=== PATIENT | female | born 1995 | race African-American/Black ===

== ENCOUNTER 2019-02-19 15:02 | Emergency (ER) | payer SELFPAY ==
[2019-02-19 15:03] VITALS: BP 121/82; PULSE 91; RESP 16; TEMP 36.1; O2SAT 97; BMI 37.9
--- NOTE | 2019-02-19 15:06 | RAD_ITS ---
STUDY: X-RAY - RIGHT FOOT CLINICAL: Female, 23 years old. Dorsal foot pain. No known injury. TECHNIQUE: 3 view(s) of the foot. COMPARISON: None. FINDINGS: Normal talus, calcaneus, and tarsal bones. Normal visualized subtalar, talonavicular, calcaneocuboid, tarsal and tarsometatarsal articulations. Normal metatarsi. Normal metatarsophalangeal joint of the great toe. Normal tibial and fibular sesamoid bones. Normal interphalangeal joint of the great toe. Normal phalanges of the great toe. Normal second through fifth metatarsophalangeal joints. Normal interphalangeal joints and phalanges of the lesser toes. The soft tissue structures are unremarkable. RAD/Foot min 3 Views IMPRESSION: Normal x-ray examination of the foot. Electronically Signed: Boyd Mederos, at 15:33 EDT , Service support ,
--- NOTE | 2019-02-19 15:29 | ED.VIS.GEN ---
History of Present Illness Chief Complaint: Lower Extremity Injury Detail of Chief Complaint: Right foot pain Informant: Patient Onset: Days Context: Gradual Onset Timing: Waxes and wanes Current Severity: Mild Maximum Severity: Moderate Narrative: She presents with right foot pain for the past couple of days. She initially denies any injury, but then her friend reminded her that she kicked a box a few days ago. She states pain is not too bad when sitting at rest, but has increased pain with weightbearing. She denies paresthesias. She took Tylenol yesterday for pain. Past Medical History - Allergies and Home Meds Allergies/Adverse Reactions: Allergies No Known Allergies Allergy (Verified 02/19/19 15:06) Prior records reviewed: Yes Past Medical History: - - Reviewed Smoking Status: Never smoker Review of Systems General: Denies: Chills, Fever Eyes: Denies: Visual changes - bilaterally ENT: Denies: Bilateral ear pain Cardiovascular: Denies: Chest pain Respiratory: Denies: Dyspnea Gastrointestinal: Denies: Abdominal pain Musculoskeletal: Reports: Extremity Pain Skin: Denies: Wounds Neurological: Denies: Weakness, Parasthesia, Numbness Hematologic: Denies: Easy bruising Allergy: Denies: Uticaria Physical Exam Vital Signs/Narrative: Vital Signs Temp Pulse Resp BP Pulse Ox 02/19/19 15:03 97 F L 91 16 121/82 H 97 Inital Vital Signs reviewed: Yes General: Well nourished, Well developed Head: Normocephalic ENT: Moist mucous membranes Cardiovascular: Regular rate, Regular rhythm Respiratory: No distress, CTA bilaterally Abdomen: Soft Extremities: - - Mild tenderness palpation over the distal fourth and fifth metatarsals. No edema or erythema. No ecchymosis. No tenderness at the ankle or knee. Skin: Normal color Neurological: Alert, Oriented x3, Normal Strength, Normal Sensation Psychological: Normal affect Diagnostic/Tx/Re-eval Right foot x-rays were obtained per nursing protocol and are unremarkable per my review. - Medical Decision Making X-ray results discussed with patient. Jacques wrap is applied to her foot. She was written for anti-inflammatories. ED Disposition - Plan for ED Patient: Disposition: Home or Assisted Living Diagnosis: Foot contusion Instructions: CONTUSION, Foot Prescriptions: Naproxen [Naprosyn] 500 mg PO BID PRN PRN #20 tablet PRN Reason: Pain Referrals: Les Espinoza MD [NON-STAFF] - As Needed
== END 2019-02-19 15:53 | disposition home or self-care (01) ==
LOC: ED 15:46
PROVIDERS: Emergency Provider Emergency Medicine
DX: S90.31XA Contusion of right foot, initial encounter (principal); X58.XXXA Exposure to other specified factors, initial encounter; Y93.89 Activity, other specified; Y92.9 Unspecified place or not applicable; Y99.9 Unspecified external cause status
CPT/HCPCS: 73630; 99282

== ENCOUNTER 2021-01-24 12:32 | Emergency (ER) | payer MEDICAID, SELFPAY ==
[2021-01-24 12:33] VITALS: BP 142/75; PULSE 99; RESP 14; TEMP 36.6; O2SAT 99; BMI 41.3
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
[2021-01-24] MEDS: Diphth,Pertuss(Acell),Tet Vac 0.5 ML Vial IM (13:34)
== END 2021-01-24 13:45 | disposition home or self-care (01) ==
PROVIDERS: Emergency Provider Emergency Medicine
DX: S50.812A Abrasion of left forearm, initial encounter (principal); V49.88XA Car occupant (driver) (passenger) injured in other specified transport accidents, initial encounter; Y93.89 Activity, other specified; Y92.410 Unspecified street and highway as the place of occurrence of the external cause; Y99.8 Other external cause status
CPT/HCPCS: 90471; 90715; 99284

== ENCOUNTER 2021-08-24 12:32 | Outpatient (CLI) | payer MEDICAID, SELFPAY ==
--- NOTE | 2021-08-24 12:36 | US_ITS ---
STUDY: ULTRASOUND BREAST - RIGHT REASON FOR EXAM: Female, 25 years old. Pain in the right breast. TECHNIQUE: Axial and longitudinal images of the RIGHT breast were performed with a high resolution ultrasound transducer. # OF IMAGES: 48 COMPARISON: None. FINDINGS: RIGHT Breast: The upper half of the right breast was examined by ultrasound. No sonographic abnormality is seen. US/Breast Limited Unilateral IMPRESSION: No sonographic abnormality is seen. ASSESSMENT CATEGORY: BIRADS Category 1: Negative. A letter regarding these results will be sent to the patient by the facility within 30 days. Electronically Signed: Boyd Mederos MD at 13:07 EDT ,
== END 2021-08-24 23:59 | disposition home or self-care (01) ==
LOC: OPUS 12:32
PROVIDERS: Visit Provider Nurse Practitioner Adult Health
DX: N64.4 Mastodynia (principal)
CPT/HCPCS: 76642

== ENCOUNTER 2022-06-17 05:20 | Emergency (ER) | payer MEDICAID, SELFPAY ==
[2022-06-17 05:21] VITALS: BP 141/87; PULSE 89; RESP 18; TEMP 36.3; O2SAT 100; BMI 42.7
[2022-06-17] MEDS: Ondansetron 4 MG/2 ML Vial IV (06:02)
[2022-06-17] MEDS: 0.9% Normal Saline 1,000 ML 999 ML IV (06:02)
[2022-06-17 06:14] LABS: Absolute Lymphocyte Count 1.28 X10^3/uL (0.83-4.51); Absolute Neutrophil Count 4.3 X10^3/uL (2.0-7.7); Basophil# 0.02 X10^3/uL; Basophil% 0.3 % (0-1); Eosinophil# 0.03 X10^3/uL; Eosinophils% 0.5 % (0-5); Hematocrit 41.1 % (37-47); Hemoglobin 13.5 g/dL (12.0-15.0); Lymphocyte # 1.28 X10^3/ul (0.83-4.51); Lymphocyte % 21.7 % (19-41); Mean Corp Hgb Conc 32.8 g/dL (32-36); Mean Corpuscular Hgb 28.5 pg (27.0-32.0); Mean Corpuscular Volume 86.7 fL (81-99); Mean Platelet Vol. 10.8 fl (6.2-12.0); Monocyte# 0.32 X10^3/uL; Monocyte% 5.4 % (0-10); NRBC Flagged by Analyzer 0 % (0-5); Neutrophil # 4.25 X10^3/uL (2.7-7.7); Neutrophil % 71.9 % (47-70); Platelet Count 324 K/mm3 (150-450); RBC Distribution Width CV 12.7 % (11.6-14.6); RBC Distribution Width SD 40.2 fl (35.1-43.9); Red Blood Count 4.74 M/mm3 (4.2-5.4); White Blood Count 5.9 K/mm3 (4.4-11.0)
[2022-06-17 06:29] LABS: Anion Gap 8 (5-15); BUN 9 mg/dL (7-18); BUN/Creat Ratio 12.2 RATIO (10-20); Calcium,Total 8.9 mg/dL (8.5-10.1); Chloride 107 mmol/L (98-107); Creatinine, Serum 0.74 mg/dL (0.55-1.02); EST Glomerular Filtration Rate 102 mL/min (>60); Est Glom Filt Rate - Afr Amer 123 mL/min (>60); Estimated Creatinine Clearance 101.23 ml/min; Glucose 104 mg/dL (74-106); Magnesium 1.9 mg/dL (1.6-2.6); Potassium 3.8 mmol/L (3.5-5.1); Sodium Level 140 mmol/L (136-145)
[2022-06-17 06:30] LABS: Internal QC Validated? YES +Cl - CLEAR BKGD
[2022-06-17 06:35] LABS: Pregnancy, Serum, hCG Quali. NEGATIVE Negative
--- NOTE | 2022-06-17 06:35 | EX.ED.DYSGE1 ---
HPI History of Present Illness Chief Complaint: Cold Sx Narrative Narrative: Patient is a 26-year-old female with no significant past medical history. She reports for approximately 5 days she has been having intermittent bouts of dry heaves and loose stool/diarrhea. She denies any recent antibiotic use known sick contacts or travel outside the country or livestock. She states that despite giving herself days for improvement that her symptoms have persisted and secondary to this she comes in for evaluation as she has concern for dehydration PFSH PFSH Medical History no medical history no medical history Home Medications amoxicillin 875 mg tablet 875 mg PO BID 06/17/22 [History Last Taken Unknown] metronidazole 500 mg tablet 500 mg PO BID 06/17/22 [History Last Taken Unknown] ondansetron 4 mg disintegrating tablet 4 mg PO TID PRN nausea and vomiting #21 tabs 06/17/22 [Rx Last Taken Unknown] Allergy/AdvReac Type Severity Reaction Status Date / Time No Known Allergies Allergy Verified 06/17/22 05:25 Social History (System 03/23/21 @ 13:44 by Lonnie Nicholas) Smoking Status: Never smoker ROS ROS ED Constitutional Constitutional ED: Denies chills or fever(s) ENT ENT ED: Denies sore throat Cardiovascular Cardiovascular: Denies chest pain Respiratory/Chest Respiratory/Chest: Reports cough; Denies dyspnea Gastrointestinal Gastrointestinal: Reports abdominal pain, diarrhea, nausea and vomiting Genitourinary Genitourinary ED: Denies dysuria Musculoskeletal Musculoskeletal: Reports myalgias Integumentary Denies rash Neurologic Neurologic: Denies headache(s) Hematologic/Lymphatic Hematologic/Lymphatic: Denies easy bleeding or easy bruising EXAM Physical Exam Const Vital Signs: 06/17/22 05:21 06/17/22 05:21 Temperature 97.4 F L Temperature Source Temporal Pulse Rate 89 Respiratory Rate 18 Respiratory Effort Normal Respiratory Pattern Normal Blood Pressure 141/87 H Blood Pressure Mean 105 Pulse Ox 100 Oxygen Delivery Method Room Air Positive well nourished and well developed General Appearance ED: well developed HEENT Reports dry mucous membranes HEENT Narrative: Mucous membranes are dry and tacky without secondary changes to suggest infection in the posterior pharynx Mouth ED: Yes dry mucous membranes Mouth: dry mucous membranes Eyes PERRL and EOMs intact bilaterally General Eye ED: Negative for scleral icterus Neck supple Resp normal respiratory effort and clear to auscultation bilaterally Cardio regular rate and regular rhythm GI non-tender and non-distended GI Narrative: Abdomen is soft nontender nondistended with hyperactive bowel sounds no voluntary guarding or rigidity Auscultation: hyperactive bowel sounds Palpation: soft Extremity normal to inspection Neuro oriented x3 and CN's II-XII intact bilaterally Sensorium / Orientation: alert Psych mental status grossly normal Skin no rashes or lesions noted and skin turgor normal General Skin Exam: Negative for jaundice MDM MDM MDM Narrative Medical decision making narrative: Patient presented to the ER with stable vitals and a soft nonsurgical abdomen so I felt no need for emergent imaging studies. With her report of 5 days of loose stool/diarrhea with poor oral intake there is concern for electrolyte abnormalities and dehydration. Basic blood work was obtained which revealed no clinically significant findings. Patient was given 1 L of IV fluid and Zofran had no bouts of loose stool/diarrhea or vomiting while in the ER. Therefore this time her symptoms fit more of a viral stomach infection and as her exam and work-up does not reveal severe electrolyte derangement or acute kidney injury she can be given symptomatic medication and discharged home. Lab Data Attestation: I reviewed the patient's lab results. Labs: Laboratory Results - last 24 hr 06/17/22 06/17/22 06/17/22 06:05 06:05 06:05 WBC 5.9 RBC 4.74 Hgb 13.5 Hct 41.1 MCV 86.7 MCH 28.5 MCHC 32.8 RDW Std Deviation 40.2 RDW Coeff of Naomi 12.7 Plt Count 324 MPV 10.8 Immature Gran % (Auto) 0.200 Neut % (Auto) 71.9 H Lymph % (Auto) 21.7 [place] % (Auto) 5.4 Eos % (Auto) 0.5 Baso % (Auto) 0.3 Absolute Neuts (auto) 4.3 Absolute Lymphs (auto) 1.28 Nucleated RBC % 0 Sodium 140 Potassium 3.8 Chloride 107 Carbon Dioxide 25.0 Anion Gap 8 BUN 9 Creatinine 0.74 Estim Creat Clear Calc 101.23 Est GFR (MDRD) Af Amer 123 Est GFR (MDRD) Non-Af 102 BUN/Creatinine Ratio 12.2 Glucose 104 Calcium 8.9 Magnesium 1.9 Serum , Qual NEGATIVE Discharge Plan Triage Chief Complaint: Cold Sx ED Provider: Mateo Huffman Dx/Rx/DC Orders Clinical Impression: Diarrhea, Nausea, Mild dehydration Instructions: ED Dehydration (Adult), ED Gastroenteritis, Viral (Adult) Prescriptions: New ondansetron 4 mg tablet,disintegrating 4 mg PO TID PRN (Reason: nausea and vomiting) Qty: 21 0RF No Action metronidazole 500 mg tablet 500 mg PO BID amoxicillin 875 mg tablet 875 mg PO BID Stand Alone Forms: ED Work / School Excuse Primary Care Provider: Care Physician,No Primary Referrals: Agustín Villarreal MD [Med Staff - Technical Proposal Writer] - Care Physician,No Primary [Primary Care Provider] - Activity Restrictions/Additional Instructions: Please keep yourself well-hydrated and use the Zofran to control any further bouts of dry heaves/nausea. If you have any further concerns please return to the ER for repeat evaluation Disposition Disposition: Home, Self Care
== END 2022-06-17 07:40 | disposition home or self-care (01) ==
PROVIDERS: Emergency Provider Emergency Medicine; Visit Provider Emergency Medicine
DX: R19.7 Diarrhea, unspecified (principal); R11.10 Vomiting, unspecified; E86.0 Dehydration
CPT/HCPCS: 80048; 83735; 84703; 85025; 87428; 96361; 96374; 99283; J7030; A4216; J2405

== ENCOUNTER 2024-03-08 02:27 | Emergency (ER) | payer MEDICAID, SELFPAY ==
[2024-03-08 02:28] VITALS: BP 136/73; PULSE 98; RESP 16; TEMP 37.1; O2SAT 97; BMI 43.4
--- NOTE | 2024-03-08 03:03 | EX.ED.GENINJ ---
HPI History of Present Illness Chief Complaint: Nausea/Vomiting Narrative Narrative: Chief complaint and HPI: Nausea and vomiting. 28-year-old female with no significant past medical presents for evaluation of nausea and vomiting. Patient states that she was at her normal state of health until this evening when she had 2 episodes of nausea and vomiting. She denies any fever, chills, URI symptoms, shortness of breath, chest pain, abdominal pain, dysuria, constipation, diarrhea. Denies any vaginal complaints. Denies as she states she is not sexually active. Review of systems: See HPI Medications: As listed on the chart Allergies: As listed on the chart PFSH: Per chart Vital signs: As listed on the chart. Reviewed. Physical exam: Gen: A&O x3, NAD Head: Normocephalic, atraumatic Eyes: No sclera icterus, conjunctiva clear ENT: Moist mucous membranes Neck: Trachea midline, No JVD CV: RRR, no murmurs, no peripheral edema Resp: Lungs CTA BL, no w/r/c GI: Abd soft, non-distended, non-tender, no r/r/g : No CVA tenderness Musc: Full ROM, no deformity Skin: Warm, dry Neuro: Alert, oriented, grossly intact, sensation intact Psych: Cooperative, appropriate mood and affect PFS PFS Home Medications ?Medication ?Instructions ?Recorded ?Last Taken ?Type ondansetron 4 mg disintegrating 4 mg PO TID PRN nausea and 06/17/22 Unknown Rx tablet vomiting #21 tabs ondansetron 4 mg disintegrating 4 mg PO Q8H PRN PRN Nausea #10 tabs 03/08/24 Unknown Rx tablet Allergy/AdvReac Type Severity Reaction Status Date / Time No Known Allergies Allergy Verified 03/08/24 02:28 Social History (System 03/23/21 @ 13:44 by Lonnie Nicholas) Smoking Status: Never smoker EXAM Physical Exam Const Vital Signs: 03/08/24 02:28 03/08/24 04:16 Temperature 98.7 F 99.1 F Temperature Source Oral Pulse Rate 98 74 Respiratory Rate 16 18 Blood Pressure 136/73 H 97/65 Blood Pressure Mean 94 75 Pulse Ox 97 100 Oxygen Delivery Method Room Air MDM MDM MDM Narrative Medical decision making narrative: 28-year-old female presents for evaluation of nausea and vomiting. Patient has had only 2 episodes of nausea and vomiting. She denies all other symptoms. She is nontender on physical exam. No clinical signs of dehydration. Zofran ordered for symptoms. Differential diagnosis includes but is not limited to viral syndrome, COVID, influenza, UA, . COVID, flu, RSV panel ordered including UA and urine . Urine negative. UA negative for UTI. No ketones suspect dehydration. On reexamination, patient states her nausea is improved. She is able to tolerate water and crackers without any vomiting or abdominal pain. Patient is stable to discharge home. She was told to follow-up with her PCP. She confirmed understanding of the plan. COVID, flu, RSV was not originally back when I was discharging the patient however before she left the emergency department her COVID, flu, RSV resulted and negative. Impression: 1. Nausea and vomiting 2. Viral syndrome Lab Data Labs: Laboratory Results - last 24 hr 03/08/24 03:21 Urine Color Yellow Urine Clarity Sl. Cloudy Urine pH 7.0 Ur Specific [place] 1.010 Urine Protein Negative Urine Glucose (UA) Normal Urine Ketones Negative Urine Occult Blood Negative Urine Nitrite Negative Urine Bilirubin Negative Urine Urobilinogen Normal Ur Leukocyte Esterase Negative Urine RBC 0 SEEN Urine WBC 0 SEEN Ur Squamous Epith Cells 0-5 SEEN Urine Bacteria 0 SEEN Urine Mucus 0 SEEN Urine Test Negative Discharge Plan Triage Chief Complaint: Nausea/Vomiting ED Provider: Evaristo Vaca Dx/Rx/DC Orders Clinical Impression: Nausea & vomiting, Viral syndrome Instructions: ED Vomiting (Adult) Prescriptions: New ondansetron 4 mg tablet,disintegrating 4 mg PO Q8H PRN PRN (Reason: Nausea) Qty: 10 0RF No Action ondansetron 4 mg tablet,disintegrating 4 mg PO TID PRN (Reason: nausea and vomiting) Qty: 21 0RF Primary Care Provider: Care Physician,No Primary Referrals: Davis Whalen MD [Med Staff - [employer]] - 3-5 Days Care Physician,No Primary [Primary Care Provider] - Activity Restrictions/Additional Instructions: Check your COVID, flu, RSV results online. Return back if symptoms worsen or change. Follow-up with your PCP if you do not have 1 follow-up with the PCP above. Print Language: Frisian Disposition Disposition: Home, Self Care Discharge Date/Time: 03/08/24 04:34
[2024-03-08] MEDS: Ondansetron 4 MG/2 ML Vial IV (03:23)
[2024-03-08 03:29] LABS: Bacteria 0 SEEN /hpf (None Seen); Mucous, Urine 0 SEEN /hpf (<or=2+); Red Blood Cells-Urine 0 SEEN /hpf (0-5); White Blood Cells 0 SEEN /hpf (0-5)
[2024-03-08 03:32] LABS: Color, Urine Yellow (Yellow); Glucose, Dipstick Normal (Normal); Ketone-Dipstick Negative (Negative); Leukocyte Esterase-Dipstick Negative /ul (Negative); Nitrite-Dipstick Negative (Negative); Occult Blood-Urine Negative /ul (Negative); Protein-Dipstick Negative (Negative); Urine Bilirubin Dipstick Negative (Negative); Urine Clarity Sl. Cloudy (Clear); Urine Urobilinogen Normal (Normal)
[2024-03-08 03:56] LABS: Internal QC Validated? YES +Cl - CLEAR BKGD; Pregnancy, Urine Negative Negative; Record Kit Lot#,Urine Preg 765743
[2024-03-08 03:58] LABS: Squamous Epithelial Cells - UA 0-5 SEEN /hpf (5-10)
[2024-03-08 04:16] VITALS: BP 97/65; PULSE 74; RESP 18; TEMP 37.3; O2SAT 100
== END 2024-03-08 04:34 | disposition home or self-care (01) ==
PROVIDERS: Emergency Provider Surgery; Visit Provider Surgery
DX: B34.9 Viral infection, unspecified (principal)
CPT/HCPCS: 81001; 81025; 87631; 96374; 99282; A4216; J2405